=== PATIENT | male | born 1955 | race Two or more races ===

== ENCOUNTER 2023-12-23 23:59 | Inpatient (IN) | payer MEDICAID ==
[~2023-12-23] VITALS: Ht 170.2 cm; Wt 100.7 kg
[2023-12-24] MEDS ORDERED: ASPIRIN 325 MG TABLET ONE (06:05)
[2023-12-24] MEDS: ASPIRIN 325 MG TABLET PO ONE (06:13)
[2023-12-24] MEDS ORDERED: ASPIRIN 300 MG/SUPP.RECT RC ONE (06:14)
[2023-12-24] MEDS: ASPIRIN 300 MG/SUPP.RECT RC ONE (06:23)
[2023-12-24 06:38] LABS: EOSINOPHILS # (AUTO) 0.1 K/uL (0.0-0.7); HEMATOCRIT 38 % (39-51); HEMOGLOBIN 12.3 g/dL (13.5-17.5); LYMPHOCYTES # (AUTO) 0.4 K/uL (0.8-4.8); LYMPHOCYTES % (AUTO) 3.5 % (20.0-44.0); MEAN CORPUSCULAR HEMOGLOBIN 29 PG (26.0-33.0); MEAN CORPUSCULAR HGB CONC 32 g/dl (31.0-36.0); MEAN CORPUSCULAR VOLUME 90 fL (80-96); MONOCYTES # (AUTO) 0.9 K/uL (0.1-1.30); MONOCYTES % (AUTO) 7.7 % (2.0-12.0); NEUTROPHILS # (AUTO) 10.5 K/uL (1.8-8.9); NEUTROPHILS % (AUTO) 87.8 % (43.0-81.0); PLATELET COUNT (AUTO) 77 K/uL (150-450); RED BLOOD CELL COUNT(AUTO) 4.28 MIL/uL (4.5-6.0); RED CELL DISTRIBUTION WIDTH 16.1 % (11.5-15.0); WHITE BLOOD COUNT (AUTO) 11.9 K/uL (4.3-11.0)
[2023-12-24 06:49] LABS: CALCIUM, SERUM 8.3 mg/dL (8.5-10.1); CARBON DIOXIDE 22 mmol/L (21-32); CHLORIDE 107 mmol/L (98-107); CREATININE 3.4 mg/dL (0.6-1.3); GLUCOSE 149 mg/dL (74-106); POTASSIUM 4.9 mmol/L (3.5-5.1); SODIUM SERUM 139 mmol/L (136-145); UREA NITROGEN, BLOOD 52 mg/dL (7-18)
[2023-12-24 06:55] LABS: ALANINE AMINOTRANSFERASE 243 U/L (12-78); ALCOHOL, BLOOD < 3 mg/dL (0-10); ALKALINE PHOSPHATASE 117 U/L (46-116); ASPARTATE AMINOTRANSFERASE 131 U/L (15-37); BILIRUBIN,DIRECT 1.1 mg/dL (0.0-0.2); BILIRUBIN,TOTAL 2.5 mg/dL (0.2-1.0); TOTAL PROTEIN, SERUM 5.2 g/dL (6.4-8.2)
[2023-12-24 06:56] LABS: SERUM AMMONIA 24 umol/L (11-32)
[2023-12-24 06:58] LABS: ALBUMIN 1.4 g/dL (3.4-5.0)
[2023-12-24 07:02] LABS: THYROID STIMULATING HORMONE 2.942 uIU/mL (0.358-3.74)
[2023-12-24 07:24] LABS: INR 1.49 (0.91-1.10); PARTIAL THROMBOPLASTIN TIME 41.4 SEC (24.3-34.3); PROTHROMBIN TIME 15.4 SECS (9.2-11.1)
[2023-12-24 11:01] LABS: ANISOCYTOSIS 1+; BAND % (MANUAL) 3 % (0.0-5.0); BASOPHILS % (MANUAL) 0 % (0.0-2.0); EOSINOPHILS % (MANUAL) 0 % (0-4); LYMPHOCYTES % (MANUAL) 5 % (16-48); MONOCYTES % (MANUAL) 7 % (0-11.0); NEUTROPHILS % (MANUAL) 85 (42-76); PLATELET ESTIMATE DECREASED
[2023-12-24 16:00] VITALS: BP 156/120; TEMP 98.2; O2SAT 97
[2023-12-24] MEDS ORDERED: ACETAMINOPHEN 325 MG TABLET PO PRN (16:30)
[2023-12-24] MEDS ORDERED: HYDROCODONE/APAP 5/325MG TABLET PO PRN (16:30)
[2023-12-24] MEDS ORDERED: Z GUARD REMEDY 4 OZ OINT TP PRN (16:30)
[2023-12-24] MEDS ORDERED: ONDANSETRON HCL/PF 4 MG/2 ML VIAL IVP PRN (16:30)
[2023-12-24] MEDS: IV 1/2NS 1000 ML 1,000 ML IV PRN (16:44)
[2023-12-24 20:00] VITALS: BP 129/98; TEMP 98.4; O2SAT 95
[2023-12-24 22:11] VITALS: TEMP 98.4
[2023-12-25] VITALS (10 sets, daily range): BP systolic 136–155; BP diastolic 81–100; TEMP 97.3–98.4; O2SAT 94–100
[2023-12-25 06:37] LABS: BASOPHILS % (AUTO) 0.1 % (0.0-2.0); EOSINOPHILS # (AUTO) 0.1 K/uL (0.0-0.7); EOSINOPHILS % (AUTO) 0.8 % (0.0-6.0); HEMATOCRIT 39 % (39-51); HEMOGLOBIN 12.5 g/dL (13.5-17.5); LYMPHOCYTES # (AUTO) 1.1 K/uL (0.8-4.8); LYMPHOCYTES % (AUTO) 11.6 % (20.0-44.0); MEAN CORPUSCULAR HEMOGLOBIN 29 PG (26.0-33.0); MEAN CORPUSCULAR HGB CONC 32 g/dl (31.0-36.0); MEAN CORPUSCULAR VOLUME 90 fL (80-96); MONOCYTES # (AUTO) 0.6 K/uL (0.1-1.30); MONOCYTES % (AUTO) 5.7 % (2.0-12.0); NEUTROPHILS # (AUTO) 8.1 K/uL (1.8-8.9); NEUTROPHILS % (AUTO) 81.8 % (43.0-81.0); PLATELET COUNT (AUTO) 68 K/uL (150-450); RED BLOOD CELL COUNT(AUTO) 4.33 MIL/uL (4.5-6.0); RED CELL DISTRIBUTION WIDTH 16.7 % (11.5-15.0); WHITE BLOOD COUNT (AUTO) 9.9 K/uL (4.3-11.0)
[2023-12-25 07:14] LABS: APPEARANCE,URINE TURBID (CLEAR); BILIRUBIN,URINE 2+ (NEGATIVE); BLOOD, URINE 3+ Ery/uL (NEGATIVE); COLOR,URINE DARK YELLOW (YELLOW); KETONES,URINE TRACE mg/dL (NEGATIVE); LEUKOCYTE ESTERASE ,URINE NEGATIVE (NEGATIVE); NITRITE, URINE NEGATIVE (NEGATIVE); PH,URINE 5.5 (5.0-8.0); PROTEIN,URINE 3+ mg/dl (NEGATIVE); UGLUCOSE TRACE mg/dL (NEGATIVE)
[2023-12-25 07:30] LABS: ADD URINE CULTURE YES; BACTERIA,URINE Few /HPF (None Seen); RBC,URINE 51-80 /HPF (0-2); SQUAMOUS EPITHELIAL CELL,UR Few /HPF (None Seen)
[2023-12-25 07:37] LABS: BILIRUBIN,TOTAL 2.1 mg/dL (0.2-1.0); CALCIUM, SERUM 8.1 mg/dL (8.5-10.1); CREATININE 3.2 mg/dL (0.6-1.3); MAGNESIUM 2.5 mg/dL (1.8-2.4); PHOSPHORUS 4.8 mg/dL (2.5-4.9); POTASSIUM 4.5 mmol/L (3.5-5.1); TOTAL PROTEIN, SERUM 5.2 g/dL (6.4-8.2)
[2023-12-25 07:40] LABS: ALBUMIN 1.3 g/dL (3.4-5.0)
[2023-12-25 07:42] LABS: THYROID STIMULATING HORMONE 3.119 uIU/mL (0.358-3.74)
[2023-12-25 07:48] LABS: EOSINOPHIL,URINE None Seen
[2023-12-25 07:52] LABS: URINE TOTAL PROTEIN 1258.8 mg/dL (0-11.9)
[2023-12-25] MEDS: hydrALAZINE HCL 50 MG TABLET PO SCH (09:51)
[2023-12-25] MEDS: PANTOPRAZOLE 40 MG TABLET.DR PO SCH (09:51)
[2023-12-25] MEDS: BUMETANIDE INJ 8 MG in IV NS 0.9% 48 ML IV ONE (09:52)
[2023-12-25] MEDS: NITROGLYCERIN 30 GM TUBE TP SCH (09:52)
[2023-12-25 10:14] LABS: ANISOCYTOSIS 1+; BAND % (MANUAL) 5 % (0.0-5.0); BASOPHILS % (MANUAL) 0 % (0.0-2.0); EOSINOPHILS % (MANUAL) 0 % (0-4); LYMPHOCYTES % (MANUAL) 9 % (16-48); MONOCYTES % (MANUAL) 4 % (0-11.0); NEUTROPHILS % (MANUAL) 82 (42-76); PLATELET ESTIMATE DECREASED
[2023-12-25] MEDS: PROSOURCE / PROSTAT (PYXIS) 30 ML UDC PO SCH (14:00)
[2023-12-25] MEDS: CLOTRIMAZOLE 1% 15 GM TUBE TP SCH (17:55)
[2023-12-25] MEDS: IPRATROPIUM NEB FS 0.5 MG/2.5 ML AMPUL.NEB NEB PRN (22:52)
[2023-12-25] MEDS: ALBUTEROL HALF STRENGTH 1.25 MG/3 ML VIAL.NEB NEB PRN (22:52)
[2023-12-26] VITALS: BP 101/77; TEMP 97.5; O2SAT 93
[2023-12-26 04:00] VITALS: BP 124/82; TEMP 97.5; O2SAT 96
[2023-12-26 04:06] LABS: PTH, INTACT 51 pg/mL (15-65)
[2023-12-26 07:30] VITALS: BP 94/61; TEMP 97.7; O2SAT 96
[2023-12-26] MEDS: CARVEDILOL 6.25 MG TABLET PO SCH (08:40)
[2023-12-26 10:10] LABS: BASOPHILS % (AUTO) 0.1 % (0.0-2.0); EOSINOPHILS # (AUTO) 0.1 K/uL (0.0-0.7); EOSINOPHILS % (AUTO) 1.2 % (0.0-6.0); HEMATOCRIT 38 % (39-51); HEMOGLOBIN 12.1 g/dL (13.5-17.5); LYMPHOCYTES # (AUTO) 0.9 K/uL (0.8-4.8); LYMPHOCYTES % (AUTO) 9.1 % (20.0-44.0); MEAN CORPUSCULAR HEMOGLOBIN 29 PG (26.0-33.0); MEAN CORPUSCULAR HGB CONC 32 g/dl (31.0-36.0); MEAN CORPUSCULAR VOLUME 89 fL (80-96); MONOCYTES # (AUTO) 0.4 K/uL (0.1-1.30); MONOCYTES % (AUTO) 4.2 % (2.0-12.0); NEUTROPHILS # (AUTO) 8.1 K/uL (1.8-8.9); NEUTROPHILS % (AUTO) 85.4 % (43.0-81.0); PLATELET COUNT (AUTO) 67 K/uL (150-450); RED BLOOD CELL COUNT(AUTO) 4.23 MIL/uL (4.5-6.0); RED CELL DISTRIBUTION WIDTH 16.6 % (11.5-15.0); RETICULOCYTE COUNT 1.4 % (0.6-2.5); WHITE BLOOD COUNT (AUTO) 9.4 K/uL (4.3-11.0)
[2023-12-26 10:16] LABS: BILIRUBIN,TOTAL 1.7 mg/dL (0.2-1.0); CALCIUM, SERUM 7.8 mg/dL (8.5-10.1); MAGNESIUM 2.4 mg/dL (1.8-2.4); PHOSPHORUS 4.7 mg/dL (2.5-4.9); POTASSIUM 4.2 mmol/L (3.5-5.1); TOTAL PROTEIN, SERUM 5.6 g/dL (6.4-8.2)
[2023-12-26 10:17] LABS: ALBUMIN 1.4 g/dL (3.4-5.0)
[2023-12-26 10:18] LABS: C-REACTIVE PROTEIN 9.37 mg/dL (0.0-0.30)
[2023-12-26 10:42] LABS: RHEUMATOID FACTOR SCREEN NEGATIVE (NEGATIVE)
[2023-12-26 11:50] LABS: ANISOCYTOSIS 1+; BASOPHILS % (MANUAL) 0 % (0.0-2.0); EOSINOPHILS % (MANUAL) 3 % (0-4); LYMPHOCYTES % (MANUAL) 11 % (16-48); MONOCYTES % (MANUAL) 4 % (0-11.0); NEUTROPHILS % (MANUAL) 82 (42-76); OVALOCYTES 1+; PLATELET ESTIMATE DECREASED
[2023-12-26 14:39] LABS: HIV-1 p24 ANTIGEN NON REACTIVE (NONREACTIVE); HIV-1/2 ANTIBODY NON REACTIVE (NONREACTIVE)
[2023-12-26 16:00] VITALS: BP 125/86; TEMP 97.3; O2SAT 99
[2023-12-26] MEDS: PHYTONADIONE INJ 10 MG/1 ML AMPUL SQ ONE (17:32)
[2023-12-26] MEDS: FERROUS SULFATE (325 MG) 325 MG/TAB TABLET PO SCH (17:32)
[2023-12-26] MEDS: FOLIC ACID 1 MG TABLET PO SCH (17:32)
[2023-12-26 17:51] LABS: INR 1.22 (0.91-1.10); PARTIAL THROMBOPLASTIN TIME 36.2 SEC (24.3-34.3); PROTHROMBIN TIME 12.8 SECS (9.2-11.1)
[2023-12-26 17:52] LABS: D-DIMER 17.84 mg/L(FEU (0.17-0.50)
[2023-12-26 20:00] VITALS: BP 107/73; TEMP 97.7; O2SAT 97
[2023-12-27 00:32] VITALS: BP 110/83; TEMP 98.4; O2SAT 98
[2023-12-27 04:58] VITALS: BP 125/70; TEMP 97.9; O2SAT 96
[2023-12-27 07:01] LABS: BASOPHILS % (AUTO) 0.1 % (0.0-2.0); EOSINOPHILS # (AUTO) 0.2 K/uL (0.0-0.7); EOSINOPHILS % (AUTO) 2.8 % (0.0-6.0); HEMATOCRIT 34 % (39-51); HEMOGLOBIN 11.1 g/dL (13.5-17.5); LYMPHOCYTES % (AUTO) 12.4 % (20.0-44.0); MEAN CORPUSCULAR HEMOGLOBIN 29 PG (26.0-33.0); MEAN CORPUSCULAR HGB CONC 33 g/dl (31.0-36.0); MEAN CORPUSCULAR VOLUME 88 fL (80-96); MONOCYTES # (AUTO) 0.4 K/uL (0.1-1.30); MONOCYTES % (AUTO) 5.5 % (2.0-12.0); NEUTROPHILS # (AUTO) 6.3 K/uL (1.8-8.9); NEUTROPHILS % (AUTO) 79.2 % (43.0-81.0); PLATELET COUNT (AUTO) 65 K/uL (150-450); RED BLOOD CELL COUNT(AUTO) 3.87 MIL/uL (4.5-6.0); RED CELL DISTRIBUTION WIDTH 16.2 % (11.5-15.0)
[2023-12-27 07:22] LABS: BILIRUBIN,TOTAL 1.2 mg/dL (0.2-1.0); CALCIUM, SERUM 7.8 mg/dL (8.5-10.1); MAGNESIUM 2.3 mg/dL (1.8-2.4); PHOSPHORUS 4.5 mg/dL (2.5-4.9); POTASSIUM 4.3 mmol/L (3.5-5.1); TOTAL PROTEIN, SERUM 5.3 g/dL (6.4-8.2)
[2023-12-27 07:27] LABS: INR 1.16 (0.91-1.10); PARTIAL THROMBOPLASTIN TIME 33.8 SEC (24.3-34.3); PROTHROMBIN TIME 12.2 SECS (9.2-11.1)
[2023-12-27 07:37] LABS: D-DIMER 18.13 mg/L(FEU (0.17-0.50)
[2023-12-27 07:49] LABS: ALBUMIN 1.2 g/dL (3.4-5.0)
[2023-12-27 08:00] VITALS: BP 136/83; TEMP 98.1; O2SAT 98
[2023-12-27 11:06] LABS: FREE KAPPA LT CHAINS SERUM 150.6 mg/L (3.3-19.4); FREE LAMBDA LT CHAIN SERUM 158.9 mg/L (5.7-26.3); KAPPA/LAMBDA RATIO SERUM 0.95 (0.26-1.65)
[2023-12-27 11:30] LABS: ANISOCYTOSIS 1+; BASOPHILS % (MANUAL) 0 % (0.0-2.0); EOSINOPHILS % (MANUAL) 2 % (0-4); LYMPHOCYTES % (MANUAL) 15 % (16-48); MONOCYTES % (MANUAL) 7 % (0-11.0); NEUTROPHILS % (MANUAL) 76 (42-76); PLATELET ESTIMATE DECREASED
[2023-12-27 12:00] VITALS: BP 120/67; TEMP 98.2; O2SAT 97
[2023-12-27 16:00] VITALS: BP 125/82; TEMP 97.5; O2SAT 98
[2023-12-27] MEDS ORDERED: MAGNESIUM HYDROXIDE 30 ML UDC PO PRN (19:30)
[2023-12-27 20:00] VITALS: BP 131/84; TEMP 97.5; O2SAT 96
[2023-12-28 00:28] VITALS: BP 103/53; TEMP 98.1; O2SAT 97
[2023-12-28 04:32] VITALS: BP 132/85; TEMP 97.9; O2SAT 100
[2023-12-28 07:00] VITALS: BP 133/78; TEMP 97.5; O2SAT 98
[2023-12-28 07:15] LABS: BASOPHILS % (AUTO) 0.1 % (0.0-2.0); EOSINOPHILS # (AUTO) 0.2 K/uL (0.0-0.7); EOSINOPHILS % (AUTO) 2.1 % (0.0-6.0); HEMATOCRIT 35 % (39-51); HEMOGLOBIN 11.3 g/dL (13.5-17.5); LYMPHOCYTES % (AUTO) 13.3 % (20.0-44.0); MEAN CORPUSCULAR HEMOGLOBIN 29 PG (26.0-33.0); MEAN CORPUSCULAR HGB CONC 33 g/dl (31.0-36.0); MEAN CORPUSCULAR VOLUME 88 fL (80-96); MONOCYTES # (AUTO) 0.5 K/uL (0.1-1.30); MONOCYTES % (AUTO) 6.5 % (2.0-12.0); NEUTROPHILS # (AUTO) 5.9 K/uL (1.8-8.9); PLATELET COUNT (AUTO) 80 K/uL (150-450); RED BLOOD CELL COUNT(AUTO) 3.92 MIL/uL (4.5-6.0); RED CELL DISTRIBUTION WIDTH 16.3 % (11.5-15.0); WHITE BLOOD COUNT (AUTO) 7.6 K/uL (4.3-11.0)
[2023-12-28 07:22] LABS: INR 1.11 (0.91-1.10); PARTIAL THROMBOPLASTIN TIME 33.3 SEC (24.3-34.3); PROTHROMBIN TIME 11.7 SECS (9.2-11.1)
[2023-12-28 07:51] LABS: BILIRUBIN,TOTAL 1.1 mg/dL (0.2-1.0); CREATININE 3.3 mg/dL (0.6-1.3); MAGNESIUM 2.3 mg/dL (1.8-2.4); PHOSPHORUS 4.2 mg/dL (2.5-4.9); POTASSIUM 4.3 mmol/L (3.5-5.1); TOTAL PROTEIN, SERUM 5.7 g/dL (6.4-8.2)
[2023-12-28 08:03] LABS: ALBUMIN 1.3 g/dL (3.4-5.0)
[2023-12-28 09:07] LABS: *ANA ANTI-CENTROMERE B AB <0.2 AI (0.0-0.9); *ANA ANTI-DNA(DS) AB, QN 1 IU/mL (0-9); *ANA ANTI-JO-1 <0.2 AI (0.0-0.9); *ANA ANTICHROMATIN ANTIBODY <0.2 AI (0.0-0.9); *ANA RNP ANTIBODIES <0.2 AI (0.0-0.9); *ANA SJOGREN'S ANTI-SS-A <0.2 AI (0.0-0.9); *ANA SJOGREN'S ANTI-SS-B <0.2 AI (0.0-0.9); *ANAANTI-SCLERODERMA-70 AB 0.6 AI (0.0-0.9); *ANASMITH AB <0.2 AI (0.0-0.9)
[2023-12-28 10:50] LABS: ANISOCYTOSIS 1+; BAND % (MANUAL) 2 % (0.0-5.0); BASOPHILS % (MANUAL) 0 % (0.0-2.0); EOSINOPHILS % (MANUAL) 4 % (0-4); LYMPHOCYTES % (MANUAL) 11 % (16-48); MONOCYTES % (MANUAL) 8 % (0-11.0); NEUTROPHILS % (MANUAL) 75 (42-76); OVALOCYTES 1+; PLATELET ESTIMATE DECREASED
[2023-12-28 11:30] VITALS: BP 131/80; TEMP 97.7; O2SAT 99
[2023-12-28 16:00] VITALS: BP 141/95; TEMP 97.5; O2SAT 100
[2023-12-28 20:00] VITALS: BP 131/84; TEMP 97.7; O2SAT 100
[2023-12-28 23:06] LABS: FOLIC ACID 6.8 ng/mL (>3.0)
[2023-12-29] VITALS (7 sets, daily range): BP systolic 110–135; BP diastolic 79–96; TEMP 98.2–99; O2SAT 94–100
[2023-12-29 07:14] LABS: BASOPHILS % (AUTO) 0.1 % (0.0-2.0); EOSINOPHILS # (AUTO) 0.2 K/uL (0.0-0.7); HEMATOCRIT 33 % (39-51); HEMOGLOBIN 10.8 g/dL (13.5-17.5); LYMPHOCYTES # (AUTO) 0.9 K/uL (0.8-4.8); LYMPHOCYTES % (AUTO) 11.8 % (20.0-44.0); MEAN CORPUSCULAR HEMOGLOBIN 29 PG (26.0-33.0); MEAN CORPUSCULAR HGB CONC 33 g/dl (31.0-36.0); MEAN CORPUSCULAR VOLUME 88 fL (80-96); MONOCYTES # (AUTO) 0.6 K/uL (0.1-1.30); MONOCYTES % (AUTO) 7.1 % (2.0-12.0); NEUTROPHILS # (AUTO) 6.2 K/uL (1.8-8.9); PLATELET COUNT (AUTO) 97 K/uL (150-450); RED BLOOD CELL COUNT(AUTO) 3.78 MIL/uL (4.5-6.0); RED CELL DISTRIBUTION WIDTH 16.6 % (11.5-15.0); WHITE BLOOD COUNT (AUTO) 7.9 K/uL (4.3-11.0)
[2023-12-29 09:37] LABS: BILIRUBIN,TOTAL 0.9 mg/dL (0.2-1.0); CALCIUM, SERUM 7.8 mg/dL (8.5-10.1); CREATININE 3.4 mg/dL (0.6-1.3); MAGNESIUM 2.4 mg/dL (1.8-2.4); PHOSPHORUS 4.4 mg/dL (2.5-4.9); POTASSIUM 4.4 mmol/L (3.5-5.1); TOTAL PROTEIN, SERUM 5.6 g/dL (6.4-8.2)
[2023-12-29 09:44] LABS: ALBUMIN 1.3 g/dL (3.4-5.0)
[2023-12-29 10:34] LABS: BASOPHILS % (MANUAL) 0 % (0.0-2.0); EOSINOPHILS % (MANUAL) 3 % (0-4); LYMPHOCYTES % (MANUAL) 9 % (16-48); MONOCYTES % (MANUAL) 6 % (0-11.0); NEUTROPHILS % (MANUAL) 82 (42-76); PLATELET ESTIMATE DECREASED
[2023-12-29 10:35] LABS: ANISOCYTOSIS 1+; OVALOCYTES 1+
[2023-12-29] MEDS ORDERED: FENTANYL PF 250MCG/5ML AMPUL IV PRN (12:00)
[2023-12-29] MEDS ORDERED: FLUMAZENIL 0.5 MG VIAL IV PRN (12:00)
[2023-12-29] MEDS ORDERED: MIDAZOLAM HCL 2 MG/2ML VIAL IV PRN (12:00)
[2023-12-29] MEDS ORDERED: NALOXONE PREFILLED SYRINGE 2 MG/2 ML SYRINGE IV PRN (12:00)
[2023-12-29] MEDS: LACTULOSE 10 G/15 ML UDC (PYXIS) PO SCH (12:33)
[2023-12-30 01:35] VITALS: BP 112/60; TEMP 98.2; O2SAT 96
[2023-12-30 06:51] LABS: CALCIUM, SERUM 7.8 mg/dL (8.5-10.1); CREATININE 3.3 mg/dL (0.6-1.3); POTASSIUM 4.1 mmol/L (3.5-5.1)
[2023-12-30 07:01] LABS: BASOPHILS % (AUTO) 0.1 % (0.0-2.0); EOSINOPHILS # (AUTO) 0.1 K/uL (0.0-0.7); EOSINOPHILS % (AUTO) 1.2 % (0.0-6.0); HEMATOCRIT 34 % (39-51); LYMPHOCYTES % (AUTO) 11.4 % (20.0-44.0); MEAN CORPUSCULAR HEMOGLOBIN 29 PG (26.0-33.0); MEAN CORPUSCULAR HGB CONC 33 g/dl (31.0-36.0); MEAN CORPUSCULAR VOLUME 88 fL (80-96); MONOCYTES # (AUTO) 0.4 K/uL (0.1-1.30); NEUTROPHILS # (AUTO) 7.1 K/uL (1.8-8.9); NEUTROPHILS % (AUTO) 82.3 % (43.0-81.0); PLATELET COUNT (AUTO) 122 K/uL (150-450); RED BLOOD CELL COUNT(AUTO) 3.85 MIL/uL (4.5-6.0); RED CELL DISTRIBUTION WIDTH 15.8 % (11.5-15.0); WHITE BLOOD COUNT (AUTO) 8.6 K/uL (4.3-11.0)
[2023-12-30 08:00] VITALS: BP 147/81; TEMP 98.1; O2SAT 94
[2023-12-30 09:08] LABS: *SPE A/G RATIO 0.5 (0.7-1.7); *SPE ALBUMIN 1.6 g/dL (2.9-4.4); *SPE ALPHA-1-GLOBULIN 0.4 g/dL (0.0-0.4); *SPE ALPHA-2-GLOBULIN 0.5 g/dL (0.4-1.0); *SPE BETA GLOBULIN 0.9 g/dL (0.7-1.3); *SPE GLOBULIN, TOTAL 3.5 g/dL (2.2-3.9); *SPE M-SPIKE Not Observed g/dL (Not Observed); *SPE PROTEIN TOTAL 5.1 g/dL (6.0-8.5); *SPEGAMMA GLOBULIN 1.6 g/dL (0.4-1.8)
[2023-12-30 12:00] VITALS: BP 138/89; TEMP 97.3; O2SAT 100
[2023-12-30 16:00] VITALS: BP 150/80; TEMP 97.3; O2SAT 99
[2023-12-30 20:00] VITALS: BP 118/92; TEMP 98.2; O2SAT 96
[2023-12-31 08:00] VITALS: BP 145/100; TEMP 98.1; O2SAT 96
[2023-12-31] MEDS ORDERED: CARV6.25 PO (10:17)
[2023-12-31] MEDS ORDERED: LACT10SO3 PO (10:17)
[2023-12-31] MEDS ORDERED: FOLI0.4T6 PO (10:17)
[2023-12-31] MEDS ORDERED: FERR325T23 PO (10:17)
[2023-12-31 16:00] VITALS: BP 130/76; TEMP 98.5; O2SAT 99
[2023-12-31 20:00] VITALS: BP 137/104; TEMP 98.1; O2SAT 95
[2024-01-01 05:20] VITALS: O2SAT 99
[2024-01-01 07:00] VITALS: BP 127/68; TEMP 97.9; O2SAT 96
[2024-01-01 07:33] LABS: BASOPHILS % (AUTO) 0.2 % (0.0-2.0); EOSINOPHILS # (AUTO) 0.2 K/uL (0.0-0.7); EOSINOPHILS % (AUTO) 2.1 % (0.0-6.0); HEMATOCRIT 33 % (39-51); HEMOGLOBIN 10.8 g/dL (13.5-17.5); LYMPHOCYTES % (AUTO) 13.1 % (20.0-44.0); MEAN CORPUSCULAR HEMOGLOBIN 29 PG (26.0-33.0); MEAN CORPUSCULAR HGB CONC 32 g/dl (31.0-36.0); MEAN CORPUSCULAR VOLUME 88 fL (80-96); MONOCYTES # (AUTO) 0.4 K/uL (0.1-1.30); NEUTROPHILS # (AUTO) 6.2 K/uL (1.8-8.9); NEUTROPHILS % (AUTO) 79.6 % (43.0-81.0); PLATELET COUNT (AUTO) 191 K/uL (150-450); RED BLOOD CELL COUNT(AUTO) 3.77 MIL/uL (4.5-6.0); WHITE BLOOD COUNT (AUTO) 7.8 K/uL (4.3-11.0)
[2024-01-01 08:26] VITALS: O2SAT 99
[2024-01-01 16:00] VITALS: BP_SYST 139; BP_SYST 145; BP_DIAS 70; BP_DIAS 90; TEMP 97.9; TEMP 98.5; O2SAT 100; O2SAT 94
[2024-01-01 16:39] VITALS: BP 139/90
== END 2024-01-01 18:35 | DRG 469 ==
LOC: ER 12-24 00:06 → TRANSITION 12-24 07:05 → TELE 12-24 11:06 → MED 12-30 15:38
PROVIDERS: ATTEND Nurse Practitioner Acute Care
PROC: 05HB33Z Insertion of Infusion Device into Right Basilic Vein, Percutaneous Approach (ICD-10-PCS; principal; 2023-12-26)
DX: N17.9 Acute kidney failure, unspecified (principal); G92.8 Other toxic encephalopathy; I50.21 Acute systolic (congestive) heart failure; E43 Unspecified severe protein-calorie malnutrition; I21.A1 Myocardial infarction type 2; E72.20 Disorder of urea cycle metabolism, unspecified; D68.9 Coagulation defect, unspecified; D69.6 Thrombocytopenia, unspecified; J90 Pleural effusion, not elsewhere classified; K76.6 Portal hypertension; I13.0 Hypertensive heart and chronic kidney disease with heart failure and stage 1 through stage 4 chronic kidney disease, or unspecified chronic kidney disease; K76.82 Hepatic encephalopathy; E88.09 Other disorders of plasma-protein metabolism, not elsewhere classified; L89.611 Pressure ulcer of right heel, stage 1; K74.60 Unspecified cirrhosis of liver; N18.9 Chronic kidney disease, unspecified; E11.65 Type 2 diabetes mellitus with hyperglycemia; L89.621 Pressure ulcer of left heel, stage 1; D69.59 Other secondary thrombocytopenia; E11.22 Type 2 diabetes mellitus with diabetic chronic kidney disease; R74.01 Elevation of levels of liver transaminase levels; E80.6 Other disorders of bilirubin metabolism; E66.9 Obesity, unspecified; Z68.35 Body mass index [BMI] 35.0-35.9, adult; R60.9 Edema, unspecified; M89.8X9 Other specified disorders of bone, unspecified site; L60.2 Onychogryphosis; J98.11 Atelectasis; I25.2 Old myocardial infarction; W19.XXXA Unspecified fall, initial encounter; Y92.039 Unspecified place in apartment as the place of occurrence of the external cause; D50.9 Iron deficiency anemia, unspecified; B35.3 Tinea pedis; B35.1 Tinea unguium; Z91.199 Patient's noncompliance with other medical treatment and regimen due to unspecified reason; N05.9 Unspecified nephritic syndrome with unspecified morphologic changes
CPT/HCPCS: 36410; 36415; 70450-TC; 71045-TC; 71250-TC; 76700-TC; 80048-TC; 80053-TC; 80061-TC; 80076-TC; 81001; 82140-TC; 82378; 82550-TC; 82553; 82570-TC; 82607-TC; 82728-TC; 82962-TC; 83010; 83540-TC; 83615-TC; 83735-TC; 83970; 84100-TC; 84155; 84165; 84300-TC; 84443-TC; 84484-TC; 85025-TC; 85045-TC; 85396; 85730-TC; 86140-TC; 86225; 86235; 86317; 86431-TC; 86803; 86880-TC; 87040-TC; 87081-TC; 87086-TC; 87340; 87806; 92526; 92611-TC; 93307-TC; 94799-TC; 97110-TC; 97112-TC; 97530-TC; G0378; G0480; J3430; J3490; J7040

== ENCOUNTER 2023-12-23 23:59 | Emergency (ER) | payer MEDICAID ==
[~2023-12-23] VITALS: Ht 170.2 cm; Wt 108.9 kg
[2023-12-24] MEDS ORDERED: DEXTROSE 50%-WATER 50 ML DISP.SYRIN ONE ×2 (00:11→00:12)
[2023-12-24] MEDS: DEXTROSE 50%-WATER 50 ML DISP.SYRIN IV ONE ×2 (00:23→00:24)
[2023-12-24 00:46] LABS: BASOPHILS % (AUTO) 0.3 % (0.0-2.0); HEMATOCRIT 42 % (39-51); HEMOGLOBIN 13.4 g/dL (13.5-17.5); LYMPHOCYTES # (AUTO) 0.7 K/uL (0.8-4.8); LYMPHOCYTES % (AUTO) 5.5 % (20.0-44.0); MEAN CORPUSCULAR HEMOGLOBIN 28 PG (26.0-33.0); MEAN CORPUSCULAR HGB CONC 32 g/dl (31.0-36.0); MEAN CORPUSCULAR VOLUME 90 fL (80-96); MONOCYTES # (AUTO) 0.5 K/uL (0.1-1.30); MONOCYTES % (AUTO) 4.2 % (2.0-12.0); NEUTROPHILS # (AUTO) 11.7 K/uL (1.8-8.9); PLATELET COUNT (AUTO) 93 K/uL (150-450); RED BLOOD CELL COUNT(AUTO) 4.71 MIL/uL (4.5-6.0); RED CELL DISTRIBUTION WIDTH 16.4 % (11.5-15.0); WHITE BLOOD COUNT (AUTO) 12.9 K/uL (4.3-11.0)
[2023-12-24 00:57] LABS: SERUM AMMONIA 16 umol/L (11-32)
[2023-12-24 00:58] LABS: INR 1.54 (0.91-1.10); PARTIAL THROMBOPLASTIN TIME 39.3 SEC (24.3-34.3); PROTHROMBIN TIME 15.9 SECS (9.2-11.1)
[2023-12-24 01:05] LABS: ALANINE AMINOTRANSFERASE 272 U/L (12-78); ALBUMIN 1.6 g/dL (3.4-5.0); ALCOHOL, BLOOD < 3 mg/dL (0-10); ALKALINE PHOSPHATASE 133 U/L (46-116); ASPARTATE AMINOTRANSFERASE 157 U/L (15-37); BILIRUBIN,DIRECT 1.2 mg/dL (0.0-0.2); BILIRUBIN,TOTAL 2.7 mg/dL (0.2-1.0); CALCIUM, SERUM 8.4 mg/dL (8.5-10.1); CARBON DIOXIDE 22 mmol/L (21-32); CHLORIDE 106 mmol/L (98-107); CREATININE 3.5 mg/dL (0.6-1.3); GLUCOSE 204 mg/dL (74-106); SODIUM SERUM 138 mmol/L (136-145); TOTAL PROTEIN, SERUM 5.8 g/dL (6.4-8.2); UREA NITROGEN, BLOOD 52 mg/dL (7-18)
[2023-12-24 01:07] LABS: ACETAMINOPHEN <10 ug/ml (10-30); SALICYLATE < 0.2 mg/dL (2.8-20.0)
[2023-12-24 01:10] LABS: THYROID STIMULATING HORMONE 3.682 uIU/mL (0.358-3.74)
[2023-12-24 01:13] LABS: ANISOCYTOSIS 1+; BAND % (MANUAL) 2 % (0.0-5.0); BASOPHILS % (MANUAL) 0 % (0.0-2.0); EOSINOPHILS % (MANUAL) 0 % (0-4); LYMPHOCYTES % (MANUAL) 7 % (16-48); MONOCYTES % (MANUAL) 5 % (0-11.0); NEUTROPHILS % (MANUAL) 86 (42-76); OVALOCYTES 1+; PLATELET ESTIMATE DECREASED; TEAR DROP CELLS 1+
[2023-12-24] MEDS ORDERED: VANCOMYCIN 1 GM /D5W 250 ML PB IV ONE (03:04)
[2023-12-24] MEDS ORDERED: PIPERACI/TAZO 3.375GM/D5W 50ML PB IV ONE (03:04)
[2023-12-24] MEDS: PIPERACILLIN /TAZOBACTAM 3.375 G in IV D5W 50 ML IV ONE (03:25)
[2023-12-24] MEDS: VANCOMYCIN 1 GM in IV D5W 250 ML IV ONE (04:00)
[2023-12-31] MEDS ORDERED: CARV6.25 PO (10:17)
[2023-12-31] MEDS ORDERED: FOLI0.4T6 PO (10:17)
[2023-12-31] MEDS ORDERED: LACT10SO3 PO (10:17)
[2023-12-31] MEDS ORDERED: FERR325T23 PO (10:17)
[2024-01-28 16:15] VITALS: BP 113/84; TEMP 98.7; O2SAT 98
== END 2023-12-24 03:24 | disposition home or self-care (01) ==
LOC: CANPREER → ER 12-24 00:06
DX: R41.82 Altered mental status, unspecified (principal); I21.4 Non-ST elevation (NSTEMI) myocardial infarction; Z20.822 Contact with and (suspected) exposure to COVID-19
CPT/HCPCS: 36415; 80048-TC; 80076-TC; 82140-TC; 82962-TC; 84443-TC; 84484-TC; 85025-TC; 85730-TC; G0480; J2543; J3370; J7060